=== PATIENT | female | born 1930 | race Caucasian/White ===

== ENCOUNTER 2019-03-13 08:09 | Day surgery (SDC) | payer MEDICARE, BC ==
[~2019-03-13] VITALS: Ht 167.6 cm; Wt 86.6 kg
[~2019-03-13 08:09] MED LIST: ACCUPRIL40MGTAB PO; ALEVE 220MG220 MG PO; ASPI325T6 PO; BETAPACE 80MG80 MG PO; CRESTOR5 MG PO; GLUCOPHAGE500 MG/TAB PO; HCTZ 25MG TAB25 MG PO; NORCO 325 MG-51 TAB PO; NORVASC 5MG5 MG/TAB PO; ONGLYZA5 MG PO
[2019-03-13 08:59] VITALS: BP 159/103; PULSE 80; TEMP 97.6
--- NOTE | 2019-03-13 09:37 | NUR ---
Spoke with Destin, Ivetteesia for change of procedure to a cardioversion.Consent obtained.
[2019-03-13 09:40] LABS: BASO % 0.2 % (0.0-2.0); EOS # 0.1 (0.0-0.7); EOS % 1.8 % (0-4.0); GRAN # 4.6 (1.4-6.5); GRAN % 73.5 % (42.2-75.2); HEMOGLOBIN 11.4 g/dl (12.5-16.0); LYMPH # 0.9 (1.2-3.4); LYMPH % 14.5 % (20.0-51.0); MEAN CELL VOLUME 90 fl (80.0-100.0); MEAN CORPUSCULAR HEMOGLOBIN 28 pg (27.0-31.0); MEAN CORPUSCULAR HGB CONC 31 g/dl (33.0-37.0); MEAN PLATELET VOLUME 9.3 fl (7.4-10.4); MONO # 0.6 (0.1-0.6); MONO % 9.5 % (1.7-9.3); PLATELET COUNT 235 K/mm3 (130-400); RED BLOOD COUNT 4.04 M/mm3 (4.10-5.30); REDCELL DISTRIBUTION WIDTH-CV 15.2 % (11.5-14.5)
[2019-03-13] MEDS ORDERED: ZEBETA 5MG5 MG PO (09:41)
[2019-03-13 09:42] LABS: HEMATOCRIT 36.3 % (37.0-47.0)
[2019-03-13] MEDS ORDERED: JANUMXR100-1000 PO (09:43)
[2019-03-13] MEDS ORDERED: NITROSTAT0.4 MG/TAB SL (09:44)
[2019-03-13] MEDS ORDERED: COZAAR100 MG PO (09:44)
[2019-03-13] MEDS ORDERED: MOBIC15 MG PO (09:44)
[2019-03-13] MEDS ORDERED: DEMADEX 20MG20 M1 PO (09:45)
[2019-03-13 09:46] LABS: INR 1.4 (0.8-3.0); PROTHROMBIN TIME 16.9 SECONDS (9.7-12.8)
[2019-03-13] MEDS ORDERED: TYLENOL 500MG500 MG PO (09:46)
[2019-03-13] MEDS ORDERED: B-12 500 MCG PO (09:47)
[2019-03-13] MEDS ORDERED: ELIQUIS 2.5 PO (09:48)
[2019-03-13 09:57] LABS: ALBUMIN 4.2 gm/dL (3.5-5.0); BILIRUBIN,TOTAL 0.9 mg/dL (0.0-1.0); CALCIUM 9.5 mg/dL (8.4-10.2); CREATININE, serum 1.37 (0.52-1.25); MAGNESIUM 1.6 mg/dL (1.6-2.3); POTASSIUM 3.7 mmol/L (3.4-5.0); TOTAL PROTEIN 7.6 gm/dL (6.4-8.2)
[2019-03-13] MEDS ORDERED: CORDARONE200 MG/TAB PO ×2 (10:30→10:31)
[2019-03-13 10:35] VITALS: BP 146/72; PULSE 71
[2019-03-13 10:40] VITALS: BP 171/78; PULSE 58
[2019-03-13 11:00] VITALS: BP 181/91; PULSE 59
--- NOTE | 2019-03-13 11:38 | NUR ---
Discharge instructions given to pt.pt verbalizes understanding.INT removed,catheter tip intact.Pt escorted out via wheelchair by this nurse.
== END 2019-03-13 11:40 | disposition home or self-care (01) ==
LOC: SDCO 08:09 → COL.CAR 08:30 → EDSTATUS 08:30 → SDCO 11:40
PROVIDERS: Internal Medicine Cardiovascular Disease
DX: I08.1 Rheumatic disorders of both mitral and tricuspid valves (principal); I48.91 Unspecified atrial fibrillation; I49.3 Ventricular premature depolarization; M19.90 Unspecified osteoarthritis, unspecified site; E11.9 Type 2 diabetes mellitus without complications; E66.9 Obesity, unspecified; I25.10 Atherosclerotic heart disease of native coronary artery without angina pectoris; I25.2 Old myocardial infarction; M10.9 Gout, unspecified; Z95.5 Presence of coronary angioplasty implant and graft; Z90.710 Acquired absence of both cervix and uterus; Z96.653 Presence of artificial knee joint, bilateral; Z79.01 Long term (current) use of anticoagulants; Z79.84 Long term (current) use of oral hypoglycemic drugs; Z87.891 Personal history of nicotine dependence; Z88.5 Allergy status to narcotic agent; Z91.018 Allergy to other foods; Z88.8 Allergy status to other drugs, medicaments and biological substances; Z96.641 Presence of right artificial hip joint; Z79.82 Long term (current) use of aspirin

== ENCOUNTER 2019-04-27 08:30 | Day surgery (SDC) | payer MEDICARE, BC ==
[2019-04-27] VITALS (8 sets, daily range): BP systolic 131–190; BP diastolic 48–106; PULSE 59–71; TEMP 97.7–98.5
[~2019-04-27] VITALS: Ht 167.7 cm; Wt 85.2 kg
[~2019-04-27 08:30] MED LIST changes: +B-12 500 MCG PO; +CORDARONE200 MG/TAB PO; +COZAAR100 MG PO; +DEMADEX 20MG20 M1 PO; +ELIQUIS 2.5 PO; +JANUMXR100-1000 PO; +MOBIC15 MG PO; +NITROSTAT0.4 MG/TAB SL; +TYLENOL 500MG500 MG PO; +ZEBETA 5MG5 MG PO
[2019-04-27 09:18] LABS: HEMOGLOBIN 10.1 g/dl (12.5-16.0); MEAN CELL VOLUME 90 fl (80.0-100.0); MEAN CORPUSCULAR HEMOGLOBIN 28 pg (27.0-31.0); MEAN CORPUSCULAR HGB CONC 31 g/dl (33.0-37.0); MEAN PLATELET VOLUME 9.2 fl (7.4-10.4); PLATELET COUNT 265 K/mm3 (130-400); RED BLOOD COUNT 3.64 M/mm3 (4.10-5.30)
[2019-04-27 09:20] LABS: HEMATOCRIT 32.6 % (37.0-47.0)
[2019-04-27 09:29] LABS: CALCIUM 9.6 mg/dL (8.4-10.2); CREATININE, serum 1.72 (0.52-1.25); POTASSIUM 3.6 mmol/L (3.4-5.0)
[2019-04-27 09:36] LABS: PROTHROMBIN TIME 12.2 SECONDS (9.7-12.8)
[2019-04-27] MEDS ORDERED: PACERONE400 MG PO (09:47)
[2019-04-27] MEDS ORDERED: NORCO 325 MG-51 TAB PO (09:56)
[2019-04-27] MEDS ORDERED: GAS-X ULTRA ST180 MG PO (09:56)
--- NOTE | 2019-04-27 10:25 | NUR ---
Pt to procedure,report to Masoud Vail.
--- NOTE | 2019-04-27 10:49 | NUR ---
SEE MERGE DOCUMENTATION FOR MEDICATION ADMINISTRATION AND INTRA/POST PROCEDURE SEDATION ASSESSMENTS. NCD SCREENING TOOL COMPLETE AND ON CHART.
--- NOTE | 2019-04-27 12:45 | NUR ---
Pt to rm 308 from flower shop laborer/designer via bed, awake and alert, denies pain at this time. Dressing over left chest site CDI, ice pack placed. POC reviewed with pt, ice water provided, dietary service called for lunch tray. No further needs reported. Call light in reach.
--- NOTE | 2019-04-27 18:00 | NUR ---
Pt sitting up in bed, ready for dinner. Sched medications administered late d/t sorting orders throughout shift. Pt denies needs at this time. Call light in reach.
--- NOTE | 2019-04-27 20:25 | NUR ---
Shift assessment complete. Pt resting in bed, awake, a&o, cooperative c cares. Pt reports "a little sore" to L upper chest pacemaker site; PRN APAP given et ice applied. Pt denies any other c/o. INT patent. Tele in place. PT denies further needs. Call light in reach, will continue to monitor.
--- NOTE | 2019-04-27 22:50 | NUR ---
Pt amb to BR at this time. Reports this is the first time she's been up since her procedure. Pt c/o increase of sharp pain to pacemaker site et expresses concern about trying to sleep. PRN pain medical logistics specialist et cold pack reapplied. Pt denies any other c/o. Call light in reach, will continue to monitor.
[2019-04-28 03:09] VITALS: BP 148/60; PULSE 60; TEMP 97.7
[2019-04-28 07:02] LABS: BASO % 0.4 % (0.0-2.0); EOS # 0.1 (0.0-0.7); EOS % 1.7 % (0-4.0); GRAN # 4.1 (1.4-6.5); LYMPH # 0.6 (1.2-3.4); LYMPH % 11.5 % (20.0-51.0); MEAN CELL VOLUME 89 fl (80.0-100.0); MEAN CORPUSCULAR HGB CONC 31 g/dl (33.0-37.0); MEAN PLATELET VOLUME 9.5 fl (7.4-10.4); MONO # 0.6 (0.1-0.6); MONO % 10.2 % (1.7-9.3); PLATELET COUNT 233 K/mm3 (130-400); RED BLOOD COUNT 3.44 M/mm3 (4.10-5.30); REDCELL DISTRIBUTION WIDTH-CV 15.1 % (11.5-14.5)
[2019-04-28 07:14] LABS: HEMATOCRIT 30.7 % (37.0-47.0); HEMOGLOBIN 9.4 g/dl (12.5-16.0); MEAN CORPUSCULAR HEMOGLOBIN 27 pg (27.0-31.0)
[2019-04-28 07:17] LABS: CALCIUM 9.2 mg/dL (8.4-10.2); CREATININE, serum 1.36 (0.52-1.25); POTASSIUM 3.6 mmol/L (3.4-5.0)
[2019-04-28 08:45] VITALS: BP 155/60; PULSE 60; TEMP 97.9
--- NOTE | 2019-04-28 08:59 | NUR ---
Pt assessment complete. Pt is sitting up in bed upon entry, just finished breakfast. Pt is A/O x4. Her breathing is tachy, pt reports some SOB. Seems SOB during conversation. Currently on RA. Pt denies any pain. No chest palpitations. Refusing ice for pacer site at this time. No other needs at this time. Call light within reach.
[2019-04-28 11:43] VITALS: BP 136/62; PULSE 55; TEMP 97.2
[2019-04-28] MEDS ORDERED: CEPHALEXIN500 M1 PO (13:02)
--- NOTE | 2019-04-28 14:30 | NUR ---
Discharge paperwork and instructions reviewed with the patient, all questions answered at this time. IV dc'd from [facility], pt wheeled out at this time.
--- NOTE | 2019-04-28 14:41 | NUR ---
Plan:To return home with Spouse in [place], [place] [facility] or [place]. Assess: Sw met with patient about dc plan. Patient reports that her spouse will assist her in home and declined [facility]. Patient reports that she uses a walker as needed. Patient reports that she obtains medications from [facility]. 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 Patient reports PCP is Dr. Martinez. Patient reports and upcoming appointment [facility] next week. Patient shares that he son Kashmir in [place] and Son Donn in [place] are shared DPOA for HC. is to transport home. Action: Patient denies any additonal concerns. Indicated that care is great. SW educated patient on services and supports. No additonal concerns at this time. Nothing Follows
== END 2019-04-28 15:26 | disposition home or self-care (01) ==
LOC: COL.CAR 08:30 → MEDICAL 12:51 → COL.CAR 04-28 15:26
PROVIDERS: Internal Medicine Cardiovascular Disease; Nurse Practitioner
DX: I44.1 Atrioventricular block, second degree (principal); M19.90 Unspecified osteoarthritis, unspecified site; I25.10 Atherosclerotic heart disease of native coronary artery without angina pectoris; E11.9 Type 2 diabetes mellitus without complications; E78.5 Hyperlipidemia, unspecified; I10 Essential (primary) hypertension; E66.9 Obesity, unspecified; I49.3 Ventricular premature depolarization; Z90.710 Acquired absence of both cervix and uterus; Z96.653 Presence of artificial knee joint, bilateral; Z96.649 Presence of unspecified artificial hip joint; Z88.5 Allergy status to narcotic agent; Z91.018 Allergy to other foods; Z79.01 Long term (current) use of anticoagulants; Z79.82 Long term (current) use of aspirin; Z79.84 Long term (current) use of oral hypoglycemic drugs; Z87.891 Personal history of nicotine dependence; Z88.8 Allergy status to other drugs, medicaments and biological substances
CPT/HCPCS: OP; J0690; J2250; J3010; J7030; Q9967

== ENCOUNTER 2019-06-22 08:49 | Day surgery (SDC) | payer MEDICARE, BC ==
[~2019-06-22] VITALS: Ht 167.6 cm; Wt 83.0 kg
[2019-06-22] VITALS (11 sets, daily range): BP systolic 118–147; BP diastolic 45–91; PULSE 59–95; TEMP 98.1
[~2019-06-22 08:49] MED LIST changes: +CEPHALEXIN500 M1 PO; +GAS-X ULTRA ST180 MG PO; +PACERONE200 MG PO
[2019-06-22] MEDS ORDERED: TRADJENTA5 MG PO (09:52)
[2019-06-22] MEDS ORDERED: DEMADEX 20MG20 M1 PO (09:53)
[2019-06-22] MEDS ORDERED: ALDACTONE 25MG25 M1 PO (09:53)
[2019-06-22 10:13] LABS: MEAN CELL VOLUME 84 fl (80.0-100.0); MEAN CORPUSCULAR HGB CONC 30 g/dl (33.0-37.0); MEAN PLATELET VOLUME 9.2 fl (7.4-10.4); PLATELET COUNT 273 K/mm3 (130-400); RED BLOOD COUNT 3.17 M/mm3 (4.10-5.30)
[2019-06-22 10:15] LABS: INR 1.2 (0.8-3.0); PROTHROMBIN TIME 14.1 SECONDS (9.7-12.8)
[2019-06-22 10:22] LABS: CALCIUM 9.3 mg/dL (8.4-10.2); CREATININE, serum 2.05 (0.52-1.25); POTASSIUM 3.9 mmol/L (3.4-5.0)
[2019-06-22 10:25] LABS: HEMATOCRIT 26.5 % (37.0-47.0); HEMOGLOBIN 7.9 g/dl (12.5-16.0); MEAN CORPUSCULAR HEMOGLOBIN 25 pg (27.0-31.0)
--- NOTE | 2019-06-22 11:08 | NUR ---
SEE MERGE DOCUMENTATION FOR MEDICATION ADMINISTRATION TIMES AND INTRA/POST PROCEDURE SEDATION ASSESSMENTS.
--- NOTE | 2019-06-22 14:08 | NUR ---
Pt up to room 317 w/ at bedside. Pt has Lt chest site, CDI w/ gauze and paper tape, arm in sling and ice to site.
--- NOTE | 2019-06-22 18:30 | NUR ---
VSS, pt denies any pain. Lt chest site is CDI. No further needs. LFA INT IV w/o complications. LS clear, pt on room air, breathing even and unlabored, denies SOB. Pacer to be interrogated in morning.
--- NOTE | 2019-06-22 19:00 | NUR ---
Received report from Candy. Seen patient awake, sitting on bed. With left arm sling and dressing on left chest with gauze and tape. With INT on left forearm. Denies any pain. With walker on the bedside. Will continue to monitor.
[2019-06-23 00:17] VITALS: BP 133/67; PULSE 62; TEMP 98.5
[2019-06-23 03:35] VITALS: BP 131/53; PULSE 59; TEMP 97.5
--- NOTE | 2019-06-23 05:54 | NUR ---
Patient had an uneventful night. Denies any pain. Ice pack has been placed. Will endorse to day shift nurse.
[2019-06-23 06:58] LABS: BASO % 0.2 % (0.0-2.0); EOS # 0.1 (0.0-0.7); EOS % 1.4 % (0-4.0); GRAN # 3.1 (1.4-6.5); GRAN % 72.7 % (42.2-75.2); LYMPH # 0.7 (1.2-3.4); LYMPH % 16.2 % (20.0-51.0); MEAN CELL VOLUME 84 fl (80.0-100.0); MEAN CORPUSCULAR HGB CONC 30 g/dl (33.0-37.0); MEAN PLATELET VOLUME 9.7 fl (7.4-10.4); MONO # 0.4 (0.1-0.6); PLATELET COUNT 264 K/mm3 (130-400)
[2019-06-23 07:02] LABS: HEMATOCRIT 26.9 % (37.0-47.0); MEAN CORPUSCULAR HEMOGLOBIN 25 pg (27.0-31.0)
[2019-06-23 07:16] LABS: CALCIUM 9.1 mg/dL (8.4-10.2); CREATININE, serum 1.67 (0.52-1.25)
[2019-06-23 08:30] VITALS: BP 150/63; PULSE 60; TEMP 98.5
[2019-06-23 12:02] VITALS: BP 133/43; PULSE 60; TEMP 98.1
[2019-06-23] MEDS ORDERED: CEPHALEXIN500 M1 PO (13:09)
--- NOTE | 2019-06-23 15:07 | NUR ---
PATIENT DC TO HOME VIA PRIVATE VEHICLE ACCOMPANIED BY AND SON. PRINTED DC INSTRUCTIONS TO INCLUDE MEDICATIONS, FOLLOW UP, INCISION CARE REVEIWED WITH PATIENT. NO QUESTIONS OR CONCERNS AFTER REVIEW.
== END 2019-06-23 14:10 | disposition home or self-care (01) ==
LOC: COL.CAR 08:49 → MEDICAL 12:50 → COL.CAR 06-23 14:10
PROVIDERS: Internal Medicine Cardiovascular Disease; Nurse Practitioner
DX: T82.198A Other mechanical complication of other cardiac electronic device, initial encounter (principal); M19.90 Unspecified osteoarthritis, unspecified site; E11.9 Type 2 diabetes mellitus without complications; E78.5 Hyperlipidemia, unspecified; I10 Essential (primary) hypertension; I49.3 Ventricular premature depolarization; I49.9 Cardiac arrhythmia, unspecified; I48.0 Paroxysmal atrial fibrillation; I34.0 Nonrheumatic mitral (valve) insufficiency; I44.1 Atrioventricular block, second degree; I25.10 Atherosclerotic heart disease of native coronary artery without angina pectoris; E66.9 Obesity, unspecified; Z96.651 Presence of right artificial knee joint; Z79.82 Long term (current) use of aspirin; Z79.01 Long term (current) use of anticoagulants; Z88.5 Allergy status to narcotic agent; Z88.8 Allergy status to other drugs, medicaments and biological substances; Z91.018 Allergy to other foods; Z90.710 Acquired absence of both cervix and uterus; Z96.653 Presence of artificial knee joint, bilateral; Z79.4 Long term (current) use of insulin; Z87.891 Personal history of nicotine dependence; Z68.28 Body mass index [BMI] 28.0-28.9, adult
CPT/HCPCS: OP; J0690; J2250; J3010; J7030